=== PATIENT | female | born 1985 | race Caucasian/White ===

== ENCOUNTER → 2018-11-23 | Outpatient (CLI) | payer OTHER ==
[2018-11-23 13:22] VITALS: BP 125/83; PULSE 76; RESP 16; TEMP 98.1; BMI 22.3
--- NOTE | 2018-11-23 14:02 | P.GSHP ---
History of Present Illness H&P Date: 11/23/18 Chief Complaint: patient noted a lump in her left breast Areli is a 33-year-old white female who states that several years ago she noted in nodule in her left breast. It is located in the lower inner quadrant. She states it is painful with her bra and so she stopped wearing her bra several years ago. The lump has not gone away and has increased slightly in size. As part of workup a mammogram and ultrasound were performed. Bilateral mammogram of the breast was performed on , this revealed the far posterior 2 o'clock position of the left breast to group of indeterminate heterogeneous Microcalcifications. Left breast ultrasound was recommended. Left breast ultrasound did not reveal any specific cystic or solid lesions in the breast. It was recommended she undergo stereotactic core biopsy of the microcalcifications in the left breast. Thyroid isn't different from that which the patient feels. She has no history of any trauma or infection in the breast. The patient only has pain in the breast at the site of the palpable mass. If she wears a bra and aggravates the area she has persistent pain at this site for several days. If she does not have pressure on the site the pain will dissipate. The pain does not radiate anyplace. THe pain is not related to her periods. The patient drinks approximately 3, 12 ounce cans of Pepsi per day. She smokes approximately a pack per day for 19 years. She is also exposed to secondhand smoke. She does not eat chocolate on a regular basis. Family History: maternal aunt: breast cancer mother: cervical cancer paternal aunt: cancer uncertain of type Hormonal history: Menarche:12 , 1 [place], breast fed: yes, age at first 19 periods irregular BCP: not for about 17 years, 1 year at 18 hormones: none Surgical history: 3 C-sections 6 cardiac ablations/for SVT Tonsils Medical history: 1. Supraventricular tachycardia 2. Irregular menstrual periods Social history: Smoke: One pack per day for 19 years Alcohol: Occasional Drugs: Marijuana several times per week - Constitutional Constitutional: Denies chills, Denies fever - EENT Eyes: denies blurred vision, denies pain Ears: deny: decreased hearing, tinnitus Ears, nose, mouth and throat: Denies headache, Denies sore throat - Breasts Breasts: bilateral: as per HPI - Cardiovascular Comment: SVT - Respiratory Comment: smoker - Gastrointestinal Gastrointestinal: Denies abdominal pain, Denies diarrhea, Denies nausea, Denies vomiting - Genitourinary (Female) Genitourinary: Denies dysuria, Denies hematuria - Menstruation Menstruation: Reports menses variable - Musculoskeletal Musculoskeletal: Denies myalgias - Integumentary Integumentary: Denies pruritus, Denies rash - Neurological Neurological: Denies numbness, Denies weakness - Psychiatric Psychiatric: Denies anxiety, Denies depression - Endocrine Endocrine: Denies fatigue, Denies weight change - Hematologic/Lymphatic Comment: none - Allergic/Immunologic Allergic/Immunologic: Reports seasonal allergies Past Medical History History of Any Multi-Drug Resistant Organisms: None Reported Smoking Status: Current every day smoker Medications and Allergies Home Medications Medication Instructions Recorded Confirmed Type No Known Home Medications 11/22/18 11/23/18 History Allergies Allergy/AdvReac Type Severity Reaction Status Date / Time No Known Allergies Allergy Verified 11/23/18 13:15 Surgical - Exam Vital Signs Temp Pulse Resp BP Pulse Ox 98.1 F 76 16 125/83 99 11/23/18 13:16 11/23/18 13:16 11/23/18 13:16 11/23/18 13:16 11/23/18 13:16 BMI 22.3 - General well developed, well nourished, no distress - Eyes normal ocular movement - ENT no hearing loss, no congestion - Neck no masses, trachea midline - Respiratory normal respiratory effort, clear to auscultation - Cardiovascular Rhythm: regular Heart Sounds: normal: S1, S2 - Abdomen Abdomen: soft, non tender, no guarding, no rigid, no rebound - Integumentary normal turgor - Neurologic no disoriented, no combative - Musculoskeletal normal gait, normal posture - Psychiatric oriented to time, oriented to person, oriented to place, speech is normal, memory intact breast exam: Right breast: Multi-positional exam fibrocystic changes no dominant masses or nodules of concern Right axilla: No adenopathy of concern Left breast: Multiple positional exam no discrete dominant masses or nodules of concern, especially attention was paid to the lower inner quadrant. The patient has a palpable change, as were noted to be very prominent she has prominent inframammary ridge however no discrete mass of concern was identified no other masses or nodules were noted fibrocystic changes Left axilla: No adenopathy of concern Results Mammogram and ultrasound results reviewed Assessment and Plan Assessment: Impression: 1. Mammographic abnormality left breast 2. Patient complains of probable change left breast/felt to be prominent inframammary fold, and anterior rib 3. Nicotine dependence 4. Mastodynia left breast 5. Fibrocystic changes in the breast 6. Family history of cancer 7. Family history of breast cancer Patient is recommended to undergo stereotactic core biopsy of the left breast. Risk and benefits of the procedure discussed with the patient. She understands and wishes to proceed. Plan: 1. Stereotactic core biopsy left breast, follow-up 1 week after biopsy 2. We have talked about stopping caffeine and nicotine to decrease the pain in the breast 3. Probable change felt to be prominent inframammary fold near an anterior rib at this time not recommending biopsy Cc: Dr. Gan
== END ==
LOC: WWCWWP 13:05
PROVIDERS: ATTEND Surgery
DX: Z53.9 Procedure and treatment not carried out, unspecified reason (principal)

== ENCOUNTER → 2018-11-30 | Day surgery (SDC) | payer OTHER ==
[2018-11-30 07:18] VITALS: RESP 16; BMI 21.9
[2018-11-30 08:38] VITALS: BP 102/67; PULSE 60; TEMP 97.8
--- NOTE | 2018-11-30 08:42 | P.OP ---
Date of Procedure: 11/30/18 Preoperative Diagnosis: Microcalcifications of concern left breast Postoperative Diagnosis: Same Procedure(s) Performed: Left breast stereotactic core biopsy Anesthesia: local Surgeon: Chyna Hawkins Pathology: other (Breast tissue) Condition: stable Disposition: same day Indications for Procedure: Heterogeneous microcalcifications left breast Operative Findings: Calcifications noted in specimen Description of Procedure: The patient is a 33-year-old white female who had a mammogram performed which revealed in the 2 o'clock position left breast a group of indeterminate heterogeneous microcalcifications. Stereotactic core biopsy was recommended. The risks and benefits of the procedure were discussed with the patient and she wished to proceed. The patient was taken to the stereotactic core biopsy wound. She was positioned on the stereotactic table. A payroll human resources assistant film was obtained. The area of concern was targeted. A lateral to medial approach was utilized. The breast was prepped using Betadine. One percent lidocaine was used to anes thetize the area of concern. 20 mL were utilized. The needle was driven to the correct coordinates. The needle was fired and post-fire films were obtained which revealed the needle to be in the correct location. A 9-gauge vacuum- assisted rotating core biopsy needle was utilized to obtain the specimen. Approximately 9 cores were obtained. Radiograph of the specimen revealed calcifications in the specimen. A secure marked top Marker was used to gregory the spot. The specimen was sent to pathology. The patient tolerated the procedure in stable condition. The patient will follow-up with Dr. Escalona next week.
--- NOTE | 2018-11-30 09:44 | MM ---
EXAMINATION TYPE: MG stereo VAD BX LT DATE OF EXAM: 11/30/2018 COMPARISON: Outside mammogram dated 10/30/2018 CLINICAL HISTORY: Indeterminate left breast calcifications for which stereotactic guided biopsy was recommended. TECHNIQUE: Stereotactic guided core biopsy of left breast. FINDINGS: The procedure of stereotactic guided core biopsy was explained to the patient. Benefits, alternatives, and risks were discussed. An informed consent was then obtained. Preprocedural timeout was performed. The shortness pathway for biopsy was chosen. Shortness pathway was lateral to medial approach. I performed the localization, then surgeon, Dr. Pola Kelsey performed the remainder of the procedure. A vacuum assisted biopsy gun was used to obtain multiple core samples. The patient tolerated the procedure well without any immediate complication. The patient was kept in the radiology department for short stay after the procedure and then discharged home in stable condition. Targeted calcifications are identified in specimen mammogram. Post biopsy mammogram shows the axial marker to appear in satisfactory position relative to the targeted area of concern on the preprocedure images. IMPRESSION: SUCCESSFUL, UNCOMPLICATED STEREOTACTIC GUIDED CORE BIOPSY OF INDETERMINATE GROUP OF CALCIFICATIONS IN THE UPPER OUTER QUADRANT OF THE LEFT BREAST AT POSTERIOR DEPTH MEASURING APPROXIMATELY 9 MM ON THE OUTSIDE EXAM, FULL PATHOLOGY RESULTS TO FOLLOW. Pathology Results: Benign LEFT BREAST, STEREOTACTIC CORE BIOPSY: Fibrocystic changes including cysts with columnar cell change and intraluminal calcifications, sclerosing adenosis with calcifications, and fibrosis. Recommendation Follow up mammogram of the left breast in 6 months. MTDD
== END ==
LOC: RADMAMWWP 06:56
PROVIDERS: ATTEND Surgery
DX: N60.22 Fibroadenosis of left breast (principal); N60.32 Fibrosclerosis of left breast
CPT/HCPCS: 88305; 19081; A4648; J2001